=== PATIENT | female | born 1965 | race Caucasian/White ===

== ENCOUNTER → 2020-10-14 | Outpatient (CLI) | payer BC ==
[2020-10-14 09:36] LABS: RED BLOOD COUNT 4.11 M/UL (4.00-5.10); WHITE BLOOD COUNT 3.5 K/UL (4.5-11.0)
[2020-10-14 10:09] LABS: BUN/CREATININE RATIO 26 (0-10)
== END ==
LOC: LAB 08:39
PROVIDERS: Emergency Medicine
DX: M13.861 Other specified arthritis, right knee (principal); M13.872 Other specified arthritis, left ankle and foot; M23.300 Other meniscus derangements, unspecified lateral meniscus, right knee; M65.872 Other synovitis and tenosynovitis, left ankle and foot; M79.661 Pain in right lower leg; R22.41 Localized swelling, mass and lump, right lower limb; Z00.01 Encounter for general adult medical examination with abnormal findings; R94.31 Abnormal electrocardiogram [ECG] [EKG]
CPT/HCPCS: 36415; 71046; 80053; 83036; 84134; 85025; 85730; 93005